=== PATIENT | female | born 2000 | race Caucasian/White ===

== ENCOUNTER 2023-11-25 22:09 | Emergency (ER) | payer BC ==
[~2023-11-25] VITALS: Ht 157.5 cm; Wt 47.9 kg
[2023-11-26] MEDS: LORazepam 2MG/ML-1ML VIAL IM ONE (02:07)
[2023-11-26] MEDS: ONDANSETRON ODT 4 MG TAB PO ONE (02:07)
[2023-11-26 02:08] VITALS: BP 120/67; PULSE 62; RESP 18; TEMP 98.8; O2SAT 100
== END 2023-11-26 03:15 | disposition home or self-care (01) ==
LOC: ER 22:09
DX: F10.939 Alcohol use, unspecified with withdrawal, unspecified (principal); Z87.891 Personal history of nicotine dependence; Y90.0 Blood alcohol level of less than 20 mg/100 ml
CPT/HCPCS: 96372; 99283; J2060; Q0162